=== PATIENT | male | born 1965 | race Hispanic/Latino ===

== ENCOUNTER 2018-01-25 00:42 | Emergency (ER) | payer MEDICARE ==
[~2018-01-25 00:42] MED LIST: APIX5TAB PO; ASPI-555 PO; CLOP75TA14 PO; DILT360C16 PO; EZET10 PO; FLUT1DIS3 PO; INSU10VI3 SQ; INSU3INS5 SQ; ISOS30TA6 PO; LEVE500T8 PO; LEVE750T10 PO; LISI-617 PO; METO-408 PO; RANO500T2 PO; RANO500T3 PO; ROSU40 PO; SITA1TBM4 PO; SOTA80TA PO; TRAM50TA4 PO
[2018-01-25] MEDS ORDERED: MAG HYDROX/AL HYDROX/SIMETH ES 30 ML SUSP UDCUP ONE (01:02)
[2018-01-25] MEDS ORDERED: LIDOCAINE HCL 2% VISCOUS 15 ML UDCUP ONE (01:02)
[2018-01-25] MEDS ORDERED: NITROGLYCERIN 1GM/1 INCH PACKET TD ONE (01:02)
[2018-01-25 01:11] LABS: BASOPHILS % (AUTO) 0.8 % (0.0-5.0); EOSINOPHILS % (AUTO) 4.3 % (0.0-8.0); LYMPHOCYTES % (AUTO) 30.7 % (21.0-51.0); MEAN CORPUSCULAR HEMOGLOBIN 28.6 pg (27.0-33.0); MEAN CORPUSCULAR HGB CONC 34.7 g/dL (32.0-36.0); MEAN CORPUSCULAR VOLUME 82.6 fL (79-99); MONOCYTES % (AUTO) 8.4 % (3.0-13.0); NEUTROPHILS % (AUTO) 55.8 % (40.0-77.0); PLATELET COUNT (AUTO) 274 K/uL (130-400); RED CELL DISTRIBUTION WIDTH 13.9 % (11.0-15.5); WHITE BLOOD COUNT (AUTO) 8.4 K/uL (4.8-10.8)
[2018-01-25 01:16] LABS: CREATININE 1.2 mg/dL (0.5-1.5); POTASSIUM 3.7 mmol/L (3.5-5.1)
[2018-01-25 01:21] LABS: INR 1.1 (0.85-1.15); PARTIAL THROMBOPLASTIN TIME 25.9 SEC (26.3-35.5); PROTHROMBIN TIME 11.5 SEC (9.6-11.6)
[2018-01-25 01:30] LABS: ALBUMIN 3.2 g/dL (3.5-5.0); BILIRUBIN,TOTAL 0.1 mg/dL (0.2-1.0); CREATINE KINASE MB 1.2 ng/mL (0.5-3.6); TOTAL PROTEIN, SERUM 7.2 g/dL (6.0-8.3)
[2018-01-25 01:32] LABS: B-TYPE NATRIURETIC PEPTIDE 45 pg/mL (0-100)
== END 2018-01-25 03:46 | disposition home or self-care (01) ==
LOC: EDH 00:42
DX: R07.89 Other chest pain (principal); I25.10 Atherosclerotic heart disease of native coronary artery without angina pectoris; Z86.73 Personal history of transient ischemic attack (TIA), and cerebral infarction without residual deficits; Z88.0 Allergy status to penicillin; Z88.8 Allergy status to other drugs, medicaments and biological substances
CPT/HCPCS: 36415; 71045; 80053; 82550; 82553; 83874; 83880; 84484; 85025; 85610; 85730; 93005; 94761

== ENCOUNTER 2024-05-11 11:25 | Inpatient (IN) | payer OTHER, MEDICARE ==
[~2024-05-11] VITALS: Ht 162.6 cm; Wt 88.5 kg
[~2024-05-11 11:25] MED LIST changes: +ASPI-1005 PO; -ASPI-555 PO; +CLOP-31 PO; -CLOP75TA14 PO; -DILT360C16 PO; +DULA1.5P SQ; -EZET10 PO; +FERR-82 PO; -FLUT1DIS3 PO; +INSU100V37 SQ; -INSU10VI3 SQ; -INSU3INS5 SQ; -ISOS30TA6 PO; +ISOS60TA77 PO; -LEVE500T8 PO; -LEVE750T10 PO; +LEVE750T4 PO; -LISI-617 PO; +LISI2.5T13 PO; +METF-446 PO; -METO-408 PO; -RANO500T3 PO; -ROSU40 PO; -SITA1TBM4 PO; -SOTA80TA PO; -TRAM50TA4 PO
[2024-05-11 13:30] LABS: BASOPHILS # (AUTO) 0.05 K/uL (0.00-0.20); BASOPHILS % (AUTO) 0.6 % (0.0-5.0); EOSINOPHILS % (AUTO) 3.4 % (0.0-8.0); HEMATOCRIT 34.3 % (42-54); IMMATURE GRANULOCYTE ABSOLUTE 0.04 K/uL (0-1); LYMPHOCYTES # (AUTO) 1.7 K/uL (1.0-4.8); LYMPHOCYTES % (AUTO) 19.5 % (21.0-51.0); MEAN CORPUSCULAR HEMOGLOBIN 27.9 pg (27.0-33.0); MEAN CORPUSCULAR HGB CONC 33.2 g/dL (32.0-36.0); MEAN CORPUSCULAR VOLUME 84.1 fL (79-99); MONOCYTES # (AUTO) 0.6 K/uL (0.1-1.0); MONOCYTES % (AUTO) 6.6 % (3.0-13.0); NEUTROPHILS # (AUTO) 6.2 K/uL (1.8-7.7); NEUTROPHILS % (AUTO) 69.4 % (40.0-77.0); PLATELET COUNT (AUTO) 316 K/uL (130-400); RED BLOOD CELL COUNT(AUTO) 4.08 MIL/uL (4.50-6.20); RED CELL DISTRIBUTION WIDTH 14.5 % (11.0-15.5); WHITE BLOOD COUNT (AUTO) 8.8 K/uL (4.8-10.8)
[2024-05-11 13:44] LABS: ALBUMIN 2.9 g/dL (3.5-5.0); BILIRUBIN,TOTAL 0.2 mg/dL (0.2-1.0); CREATININE 1.3 mg/dL (0.5-1.3); POTASSIUM 4.1 mmol/L (3.5-5.1); TOTAL PROTEIN, SERUM 6.9 g/dL (6.0-8.3)
[2024-05-11] MEDS: LACTATED RINGERS 1000ML 1,000 ML IV ONE (13:52)
[2024-05-11] MEDS: PANTOPrazole 40 MG/VIAL IVP ONE (13:52)
[2024-05-11] MEDS: ondanSETRON 4MG INJ IVP ONE (13:52)
[2024-05-11] MEDS: acetaMINOPHEN 325 MG TAB PO ONE (13:52)
[2024-05-11 14:59] LABS: ADD UA MICROSCOPIC YES; APPEARANCE,URINE CLEAR (CLEAR); BILIRUBIN,URINE NEGATIVE (NEGATIVE); COLOR,URINE LIGHT-YELLOW (YELLOW); GLUCOSE, URINE (UA) >=1000 mg/dL (NEGATIVE); KETONES,URINE NEGATIVE (NEGATIVE); LEUKOCYTE ESTERASE ,URINE NEGATIVE Leu/uL (NEGATIVE); NITRATE,URINE NEGATIVE (NEGATIVE); OCCULT BLOOD,URINE SMALL (NEGATIVE); PROTEIN,URINE 300 mg/dL (NEGATIVE); UROBILINOGEN,URINE 0.2 mg/dL (0.2-1.0)
[2024-05-11 15:16] LABS: MUCUS,URINE RARE LPF (None Seen); WBC,URINE 0-1 /HPF (0-1)
[2024-05-11] MEDS ORDERED: hydrALAZine 20MG/ML VIAL IV PRN (16:30)
[2024-05-11] MEDS ORDERED: acetaMINOPHEN 325 MG TAB PO PRN (16:30)
[2024-05-11] MEDS ORDERED: ondanSETRON 4MG INJ IVP PRN (16:30)
[2024-05-11] MEDS: hydroMORPHone 0.5 MG SYG (0.5MG/0.5ML) IJ ONE (17:00)
[2024-05-11] MEDS: 0.9%NACL 1000ML 1,000 ML IV SCH (17:09)
[2024-05-11] MEDS ORDERED: levoFLOXacin 500 MG/D5W 100 ML 100 ML IV SCH (18:00)
[2024-05-11 18:41] VITALS: BP 189/92; PULSE 67; RESP 20; TEMP 98.4
[2024-05-11] MEDS ORDERED: ATOR40TA69 PO (19:34)
[2024-05-11] MEDS ORDERED: OMEP40CA21 PO (19:34)
[2024-05-11] MEDS ORDERED: METO25TA6 PO (19:34)
[2024-05-11] MEDS ORDERED: METF-446 PO (19:34)
[2024-05-11] MEDS ORDERED: TICA90TA PO (19:34)
[2024-05-11] MEDS ORDERED: HYDR50TA37 PO (19:34)
[2024-05-11 20:00] VITALS: O2SAT 97
[2024-05-11 20:29] VITALS: BP 179/95; PULSE 68; RESP 18; TEMP 97.8
[2024-05-11] MEDS: FAMOTIDINE 20MG VIAL IV SCH (20:55)
[2024-05-11] MEDS: levoFLOXacin 500 MG/D5W 100 ML 100 ML IV SCH (20:56)
[2024-05-11] MEDS: hydroMORPHone 0.5 MG SYG (0.5MG/0.5ML) IVP PRN (23:15)
[2024-05-11 23:45] VITALS: BP 160/63; PULSE 71; RESP 22; TEMP 98.2
[2024-05-12 04:14] VITALS: BP 166/94; PULSE 68; RESP 17; TEMP 98.3
[2024-05-12 04:37] LABS: BASOPHILS # (AUTO) 0.07 K/uL (0.00-0.20); BASOPHILS % (AUTO) 0.6 % (0.0-5.0); EOSINOPHILS # (AUTO) 0.29 K/uL (0.00-0.70); EOSINOPHILS % (AUTO) 2.3 % (0.0-8.0); HEMATOCRIT 34.7 % (42-54); IMMATURE GRANULOCYTE ABSOLUTE 0.05 K/uL (0-1); LYMPHOCYTES # (AUTO) 1.3 K/uL (1.0-4.8); LYMPHOCYTES % (AUTO) 10.8 % (21.0-51.0); MEAN CORPUSCULAR HEMOGLOBIN 27.5 pg (27.0-33.0); MEAN CORPUSCULAR HGB CONC 32.9 g/dL (32.0-36.0); MEAN CORPUSCULAR VOLUME 83.8 fL (79-99); MONOCYTES # (AUTO) 0.6 K/uL (0.1-1.0); MONOCYTES % (AUTO) 4.6 % (3.0-13.0); NEUTROPHILS % (AUTO) 81.3 % (40.0-77.0); PLATELET COUNT (AUTO) 314 K/uL (130-400); RED BLOOD CELL COUNT(AUTO) 4.14 MIL/uL (4.50-6.20); RED CELL DISTRIBUTION WIDTH 14.3 % (11.0-15.5); WHITE BLOOD COUNT (AUTO) 12.4 K/uL (4.8-10.8)
[2024-05-12 05:07] LABS: ALBUMIN 2.6 g/dL (3.5-5.0); BILIRUBIN,TOTAL 0.3 mg/dL (0.2-1.0); CREATININE 1.2 mg/dL (0.5-1.3); MAGNESIUM 1.5 mg/dL (1.80-2.40); POTASSIUM 3.6 mmol/L (3.5-5.1); TOTAL PROTEIN, SERUM 6.7 g/dL (6.0-8.3)
[2024-05-12 07:35] VITALS: BP 177/89; PULSE 89; RESP 20; TEMP 98.9
[2024-05-12 08:00] VITALS: O2SAT 96
[2024-05-12] MEDS: MAGNESIUM 2GM PREMIX 50ML 50 ML IV PRN (08:53)
[2024-05-12 11:18] VITALS: BP 162/83; PULSE 94; RESP 20; TEMP 98.4
[2024-05-12] MEDS: PoTASSium chloRIDE 20MEQ/100ML 100 ML IV PRN (11:25)
[2024-05-12] MEDS: hydrALAZine 25MG TABLET PO SCH (14:00)
[2024-05-12] MEDS: FERROUS SULFATE 325 MG TABLET.DR PO SCH (14:00)
[2024-05-12 15:45] VITALS: BP 166/83; PULSE 87; RESP 20; TEMP 98.2
[2024-05-12] MEDS: BisaCODYL 10 MG SUPP.RECT RC ONE (16:55)
[2024-05-12 20:00] VITALS: BP 188/77; PULSE 85; RESP 18; TEMP 98.3; O2SAT 95
[2024-05-12] MEDS: leveTIRACEtam 500 MG TABLET PO SCH (20:46)
[2024-05-12] MEDS: TICAGrelor 90 MG TABLET PO SCH (20:47)
[2024-05-12] MEDS: metoPROLOL tartRATE 25 MG TAB PO SCH (20:47)
[2024-05-12] MEDS: RANOLAZINE 500 MG TAB.SR.12H PO SCH (20:47)
[2024-05-12] MEDS: atorVAStatin 40 MG TABLET PO SCH (20:48)
[2024-05-12] MEDS: ISOSORBIDE MONO 60MG SR TAB PO SCH (20:48)
[2024-05-13] VITALS (26 sets, daily range): BP systolic 109–150; BP diastolic 46–79; PULSE 55–82; RESP 5–20; TEMP 98.1–99.2; O2SAT 96–97
[2024-05-13 05:15] LABS: MEAN CORPUSCULAR HGB CONC 33.1 g/dL (32.0-36.0); MEAN CORPUSCULAR VOLUME 84.4 fL (79-99); RED BLOOD CELL COUNT(AUTO) 3.79 MIL/uL (4.50-6.20); RED CELL DISTRIBUTION WIDTH 14.7 % (11.0-15.5); WHITE BLOOD COUNT (AUTO) 10.2 K/uL (4.8-10.8)
[2024-05-13 05:30] LABS: CREATININE 1.4 mg/dL (0.5-1.3); POTASSIUM 3.5 mmol/L (3.5-5.1)
[2024-05-13] MEDS ORDERED: PoTASSium chl 10% ELIXIR 20MEQ 20 MEQ/15 ML UDCUP PO PRN (08:00)
[2024-05-13] MEDS ORDERED: PoTASSium chloRIDE 20MEQ/100ML 100 ML IV PRN (08:00)
[2024-05-13] MEDS: ASPIRIN 81MG CHEW TAB PO SCH (09:00)
[2024-05-13] MEDS: LEVETIRACETAM 1,500MG @ 400 MLS/HR(100ml) IV SCH (09:29)
[2024-05-13 09:40] LABS: AMPHET/METH SCREEN,URINE NEGATIVE (NEGATIVE); BARBITURATE SCREEN, URINE NEGATIVE (NEGATIVE); BENZODIAZEPINES SCREEN,URINE NEGATIVE (NEGATIVE); CANNABINOID SCREEN,URINE NEGATIVE (NEGATIVE); COCAINE SCREEN,URINE NEGATIVE (NEGATIVE); OPIATE SCREEN,URINE POSITIVE (NEGATIVE); PHENCYCLIDINE SCREEN,URINE NEGATIVE (NEGATIVE)
[2024-05-13 10:26] LABS: ABG BASE EXCESS 2.2 mmol/L (-2.0-3.0); ABG HCO3 27.2 mmol/L (21.0-28.0); ABG OXYGEN SATURATION 96.3 % (94.0-98.0); ABG PCO2 44 mmHg (35-48); ABG PH 7.411 (7.350-7.450); DEVICE COMMENT LBSYLVIA; VENT MODE, BG RA (ROOM AIR)
[2024-05-14 03:32] LABS: HEMATOCRIT 30.7 % (42-54); MEAN CORPUSCULAR HEMOGLOBIN 28.5 pg (27.0-33.0); MEAN CORPUSCULAR HGB CONC 33.9 g/dL (32.0-36.0); MEAN CORPUSCULAR VOLUME 84.1 fL (79-99); RED BLOOD CELL COUNT(AUTO) 3.65 MIL/uL (4.50-6.20); RED CELL DISTRIBUTION WIDTH 14.6 % (11.0-15.5); WHITE BLOOD COUNT (AUTO) 7.6 K/uL (4.8-10.8)
[2024-05-14 04:15] VITALS: BP_SYST 119; BP_SYST 199; BP_DIAS 53; PULSE 66; RESP 18; TEMP 98
[2024-05-14 04:37] LABS: ALBUMIN 2.3 g/dL (3.5-5.0); BILIRUBIN,TOTAL 0.4 mg/dL (0.2-1.0); CREATININE 1.4 mg/dL (0.5-1.3); MAGNESIUM 1.8 mg/dL (1.80-2.40); POTASSIUM 3.5 mmol/L (3.5-5.1); TOTAL PROTEIN, SERUM 6.2 g/dL (6.0-8.3)
[2024-05-14] MEDS: PoTASSium chloRIDE 20MEQ ER 20 MEQ ERTAB PO PRN (05:15)
[2024-05-14 07:10] VITALS: O2SAT 97
[2024-05-14 07:30] VITALS: BP 124/65; PULSE 62; RESP 18; TEMP 98
[2024-05-14] MEDS ORDERED: acetaMINOPHEN WITH coDEINE 1 TAB TAB PO PRN ×2 (10:00→10:30)
[2024-05-14 12:14] VITALS: BP 131/73; PULSE 68; RESP 20; TEMP 98.1
[2024-05-14 16:43] VITALS: BP 132/65; PULSE 76; RESP 17; TEMP 98.4
[2024-05-14 20:00] VITALS: BP 135/68; PULSE 67; RESP 20; TEMP 98.1
[2024-05-15] VITALS: BP 153/86; PULSE 67; RESP 17; TEMP 98.7
[2024-05-15 04:00] VITALS: BP 121/70; PULSE 71; RESP 18; TEMP 98.2
[2024-05-15 04:50] LABS: HEMATOCRIT 31.9 % (42-54); MEAN CORPUSCULAR HEMOGLOBIN 28.7 pg (27.0-33.0); MEAN CORPUSCULAR HGB CONC 33.9 g/dL (32.0-36.0); MEAN CORPUSCULAR VOLUME 84.8 fL (79-99); RED BLOOD CELL COUNT(AUTO) 3.76 MIL/uL (4.50-6.20); RED CELL DISTRIBUTION WIDTH 14.7 % (11.0-15.5); WHITE BLOOD COUNT (AUTO) 8.2 K/uL (4.8-10.8)
[2024-05-15 05:24] LABS: CREATININE 1.4 mg/dL (0.5-1.3); POTASSIUM 3.7 mmol/L (3.5-5.1)
[2024-05-15 07:00] VITALS: O2SAT 99
[2024-05-15 08:00] VITALS: BP 133/74; PULSE 64; RESP 20; TEMP 98.3
[2024-05-15] MEDS ORDERED: COMPOUND IV MISC 1 EACH IVSOLN MISC PRN (09:30)
== END 2024-05-15 11:30 | disposition home or self-care (01) | DRG 637 ==
LOC: EDH 11:25 → EDHIP 16:14 → 4DH 18:25 → 2CV 05-13 09:21 → 2DH 05-13 18:07 → 4AH 05-14 14:20
PROVIDERS: ADMIT Hospitalist; ATTEND Hospitalist
DX: E11.65 Type 2 diabetes mellitus with hyperglycemia (principal); E43 Unspecified severe protein-calorie malnutrition; D68.69 Other thrombophilia; I48.20 Chronic atrial fibrillation, unspecified; I69.354 Hemiplegia and hemiparesis following cerebral infarction affecting left non-dominant side; I50.30 Unspecified diastolic (congestive) heart failure; E78.5 Hyperlipidemia, unspecified; G51.0 Bell's palsy; I25.10 Atherosclerotic heart disease of native coronary artery without angina pectoris; I11.0 Hypertensive heart disease with heart failure; Z95.1 Presence of aortocoronary bypass graft; Z79.82 Long term (current) use of aspirin; Z95.5 Presence of coronary angioplasty implant and graft; Z79.899 Other long term (current) drug therapy
CPT/HCPCS: 36415; 36600; 70450; 71045; 74018; 74176; 80048; 80053; 80305; 81001; 82550; 82803; 82948; 83690; 83735; 84484; 85025; 85027; 93005; 96361; 96374; 96375; G0378; J1171; J1953; J1956; J2405; J2470; J3475; J3480; J3490; J7030; J7120

== ENCOUNTER 2024-06-25 15:03 | Emergency (ER) | payer OTHER, MEDICARE ==
[~2024-06-25] VITALS: Ht 162.6 cm; Wt 86.2 kg
[~2024-06-25 15:03] MED LIST changes: -APIX5TAB PO; +ATOR40TA69 PO; -CLOP-31 PO; -DULA1.5P SQ; +HYDR50TA37 PO; -LISI2.5T13 PO; +METO25TA6 PO; +OMEP40CA21 PO; +TICA90TA PO
[2024-06-25] MEDS: MAG/ALUM/SIMETH 30 ML UDCUP PO ONE (15:54)
[2024-06-25] MEDS: LIDOCAINE HCL 2% VISCOUS 15 ML UDCUP PO ONE (15:54)
[2024-06-25] MEDS: PANTOPrazole 40 MG/VIAL IVP ONE (15:54)
[2024-06-25] MEDS: LACTATED RINGERS 1000ML 1,000 ML IV ONE (15:54)
[2024-06-25] MEDS: ondanSETRON 4MG INJ IVP ONE (15:54)
--- NOTE | 2024-06-25 16:11 | ERN ---
General Chief Complaint: Abdominal Pain Stated Complaint: ABD PAIN Time Seen by MD: 15:07 Source: patient History of Present Illness Initial Comments PATIENT IS A 59-YEAR-OLD MALE COMING IN TO BE EVALUATED FOR ABDOMINAL DISCOMFORT. PATIENT STATES THAT HE HAS BEEN HAVING THIS PAIN FOR A COUPLE OF MONTHS. HE STATES THAT HE HAS BEEN ON OZEMPIC IN HIS PRIMARY CARE PHYSICIAN EVALUATED HIM LOWER THE DOSAGE FELT BETTER FOR A LITTLE BIT BUT HIS SYMPTOMS PROGRESSIVELY RETURNED. Allergies: Coded Allergies: Penicillins (Unverified Allergy, Unknown, 01/23/18) gabapentin (Unverified Allergy, Unknown, 01/23/18) Home Meds Active Scripts Isosorbide Mononitrate (Isosorbide Mononitrate ER) 60 Mg Tab.er.24h, 60 MG PO BID, #60 TAB 1 Refill Prov:ALMITA JOY 10/19/23 Ranolazine (RANEXA) 500 Mg Tab.er.12h, 1000 MG PO BID, #60 TAB 3 Refills Prov:ALMITA JOY 10/19/23 Reported Medications Atorvastatin Calcium (LIPITOR) 40 Mg Tablet, 1 TAB PO HS for 30 Days, #30 TAB 0 Refills 05/11/24 Metformin HCl (Metformin HCl) 1,000 Mg Tablet, 1 TAB PO DAILY for 30 Days, #60 TAB 0 Refills 05/11/24 Hydralazine HCl (Hydralazine HCl) 50 Mg Tablet, 1 TAB PO TID for 30 Days, #90 TAB 0 Refills 05/11/24 Metoprolol Tartrate (Metoprolol Tartrate) 25 Mg Tablet, 1 TAB PO BID for 30 Days, #60 TAB 0 Refills 05/11/24 Ticagrelor (Brilinta) 90 Mg Tablet, 1 TAB PO BID for 30 Days, #60 TAB 0 Refills 05/11/24 Omeprazole (Omeprazole) 40 Mg Capsule.dr, 1 CAP PO DAILY for 30 Days, #30 CAP 0 Refills 05/11/24 Ferrous Sulfate (Iron) 325 Mg (65 Mg Iron) Tablet, 325 MG PO TID, TAB 10/17/23 Levetiracetam (Keppra) 750 Mg Tablet, 1500 MG PO BID, TAB 10/17/23 Insulin Degludec (Tresiba) 100 Unit/Ml Vial, 60 UNIT SQ DAILY, VIAL 10/17/23 Aspirin (ASPIRIN 81MG CHEW TAB) 81 Mg Tab.chew, 81 MG PO DAILY, TAB.CHEW 09/13/22 Past Medical History Past Medical History: CAD, CHF, CVA, Diabetes-Type II, Hypertension, Seizure Past Surgical History: CABG, Other Surgical History Other: OPEN HEART (2017) [address] ROS Dictation CONSTITUTIONAL: NO CHILLS, NO FEVER, NO WEAKNESS, NO DIAPHORESIS, NO MALAISE. HEAD/FACE: NO SIGNS OF TRAUMA. EENT: NO EYE PAIN, NO BLURRED VISION, NO TEARING, NO DOUBLE VISION, NO EAR PAIN, NO EAR DISCHARGE, NO NOSE PAIN, NO NASAL CONGESTION, NO THROAT PAIN, NO THROAT SWELLING, NO MOUTH PAIN. RESPIRATORY: NO COUGH, NO ORTHOPNEA, NO SOB, NO STRIDOR, NO WHEEZING. CARDIOVASCULAR: NO CHEST PAIN, NO EDEMA, NO PALPITATIONS, NO SYNCOPE. GASTROINTESTINAL/ABDOMINAL: ABDOMINAL PAIN, NO CONSTIPATION, NO DIARRHEA, NAUSEA, NO VOMITING. GENITOURINARY: NO ABNORMAL DISCHARGE, NO DYSURIA, NO FREQUENT URINATION, NO HEMATURIA. NO COMPLAINTS OF PAIN IN THE GENITALS. MUSCULOSKELETAL: NO BACK PAIN, NO GOUT, NO JOINT PAIN, NO JOINT SWELLING, NO MUSCLE PAIN, NO MUSCLE STIFFNESS, NO NECK PAIN. INTEGUMENTARY: NO CHANGE IN COLOR, NO CHANGE IN HAIR/NAILS, NO DRYNESS, NO LESION, NO LUMPS, NO RASH. NEUROLOGICAL/PSYCH: NO ANXIETY, NOT DEPRESSED, NO EMOTIONAL PROBLEM, NO HEADACHE, NO NUMBNESS, NO PRE-EXISTING DEFICIT, NO HISTORY OF SEIZURES, NO TREMORS, NO WEAKNESS. HEMATOLOGIC/LYMPHATIC: NOT ANEMIC, NO HISTORY OF BLOOD CLOTS, NO APPARENT BLEEDING, NO BRUISING, GLANDS NOT SWOLLEN. ALL SYSTEMS NEGATIVE, EXCEPT NOTED. Physical Exam Physical Exam Dictation VITAL SIGNS: REVIEWED. GENERAL APPEARANCE: ALERT, ORIENTED X3, NO ACUTE DISTRESS, OBESE. HEAD AND FACE: NON-TRAUMATIC. EYES: PERRL, PINK CONJUNCTIVAS, EYELID NO TRAUMA, ANTERIOR CHAMBER CLEAR. EARS: PINNAS INTACT AND NO SIGNS OF TRAUMA OR ERYTHEMA. EAR CANALS CLEAR AND NO DISCHARGE. TMS NO ERYTHEMA. NOSE: NO DISCHARGE, NO BLEEDING. OROPHARYNX: MOUTH NORMAL, TEETH NO CARIES, TONGUE PINK. PHARYNX CLEAR, NO ERYTHEMA. TONSILS NO EXUDATES, NO ABSCESSES NOTED. MUCOUS MEMBRANE MOIST. NECK: SUPPLE, NON-TENDER, NO THYROMEGALY, NO MASSES, NO JVD, NO BRUITS. BREAST: DEFERRED. CHEST: NO TENDERNESS, NO CREPITUS, NO PARADOXICAL MOVEMENT, NO RETRACTIONS. LUNGS: CLEAR, WELL-VENTILATED, SYMMETRIC, NO RALES, NO WHEEZING, NO RHONCHI, NO STRIDOR, GOOD BREATH SOUNDS BILATERALLY. HEART: REGULAR RATE, REGULAR RHYTHM, NO MURMUR, NO GALLOPS. VASCULAR: NO PERIPHERAL EDEMA. ABDOMEN: SOFT, POSITIVE BOWEL SOUNDS, NONDISTENDED, NO GUARDING, GENERALIZED ABDOMINAL TENDERNESS, NO REBOUND, NO MASSES NO HEPATOMEGALY, NO SPLENOMEGALY, NO BLEVINS'S SIGN, NO HERNIAS. RECTAL: DEFERRED. GENITAL: DEFERRED. NEUROLOGICAL: NORMAL SPEECH, GROSS MOTOR FUNCTION INTACT, GROSS SENSORY FUNCTION INTACT. MUSCULOSKELETAL: NECK NONTENDER, FULL RANGE OF MOTION, BACK NONTENDER, FULL RANGE OF MOTION. EXTREMITIES: NONTENDER, FULL RANGE OF MOTION. SKIN: COLOR PINK, DRY, NO TURGOR, NO RASH, NO LACERATIONS, NO ABRASIONS, NO CONTUSIONS. LYMPHATICS: DEFERRED. Results Laboratory and Microbiology Lab and Micro Result Laboratory Tests Test 06/25/24 16:04 06/25/24 16:25 White Blood Count 10.8 K/uL (4.8-10.8) Red Blood Count 4.26 MIL/uL (4.50-6.20) L Hemoglobin 12.2 g/dL (14.0-18.0) L Hematocrit 36.9 % (42-54) L Mean Corpuscular Volume 86.6 fL (79-99) Mean Corpuscular Hemoglobin 28.6 pg (27.0-33.0) Mean Corpuscular Hemoglobin Concent 33.1 g/dL (32.0-36.0) Red Cell Distribution Width 14.6 % (11.0-15.5) Platelet Count 286 K/uL (130-400) Mean Platelet Volume 10.5 fL (7.5-10.5) Immature Granulocyte % (Auto) 0.4 % (0-1) Neutrophils (%) (Auto) 68.8 % (40.0-77.0) Lymphocytes (%) (Auto) 18.6 % (21.0-51.0) L Monocytes (%) (Auto) 6.1 % (3.0-13.0) Eosinophils (%) (Auto) 5.5 % (0.0-8.0) Basophils (%) (Auto) 0.6 % (0.0-5.0) Neutrophils # (Auto) 7.5 K/uL (1.8-7.7) Lymphocytes # (Auto) 2.0 K/uL (1.0-4.8) Monocytes # (Auto) 0.7 K/uL (0.1-1.0) Eosinophils # (Auto) 0.59 K/uL (0.00-0.70) Basophils # (Auto) 0.06 K/uL (0.00-0.20) Absolute Immature Granulocyte (auto 0.04 K/uL (0-1) Nucleated Red Blood Cells 0.0 % (0.0-0.19) Sodium Level 142 mmol/L (136-145) Potassium Level 3.7 mmol/L (3.5-5.1) Chloride Level 104 mmol/L (101-111) Carbon Dioxide Level 32 mmol/L (21-32) Blood Urea Nitrogen 14 mg/dL (7-18) Creatinine 1.3 mg/dL (0.5-1.3) Glomerular Filtration Rate Calc 64 mL/min (>90) Random Glucose 166 mg/dL (70-105) H Total Calcium 8.5 mg/dL (8.5-10.1) Total Bilirubin 0.2 mg/dL (0.2-1.0) Aspartate Amino Transf (AST/SGOT) 23 U/L (10-37) Alanine Aminotransferase (ALT/SGPT) 27 U/L (12-78) Alkaline Phosphatase 129 U/L (50-136) Total Creatine Kinase 159 U/L (21-232) Troponin I High Sensitivity 10 ng/L (4-75) Total Protein 6.9 g/dL (6.0-8.3) Albumin 3.1 g/dL (3.5-5.0) L Lipase 28 U/L (16-77) Urine Color LIGHT-YELLOW (YELLOW) Urine Appearance CLEAR (CLEAR) Urine pH 6.0 (5.0-8.0) Urine Specific [place] 1.012 (1.001-1.031) Urine Protein 200 mg/dL (NEGATIVE) H Urine Glucose (UA) >=1000 mg/dL (NEGATIVE) H Urine Ketones NEGATIVE mg/dL (NEGATIVE) Urine Occult Blood SMALL (NEGATIVE) H Urine Nitrate NEGATIVE (NEGATIVE) Urine Bilirubin NEGATIVE mg/dL (NEGATIVE) Urine Urobilinogen 0.2 mg/dL (0.2-1.0) Urine Leukocyte Esterase NEGATIVE Aimee/uL Urine RBC 2-5 /HPF (0-1) H Urine WBC 2-5 /HPF (0-1) H Urine Squamous Epithelial Cells RARE /HPF (0-2) Urine Bacteria RARE /HPF (None Seen) Labs Reviewed?: Yes EKG/XRAY/US/CT/MRI EKG Comment 06/25/2024 TIME 4:12 P.M. VENTRICULAR RATE [address] SIN[address] R[address]M [place] [address] WAVE ELEVATION OR DEPRESSION MDM MDM: DIFFERENTIAL DIAGNOSIS: ABDOMINAL PAIN, ON OZEMPIC, PATIENT IS A 59-YEAR-OLD GENTLEMAN COMING IN TO BE EVALUATED FOR ABDOMINAL PAIN. LABORATORY WORKUP NEGATIVE FOR ACUTE FINDINGS. PATIENT STATES HE WAS ON OZEMPIC AND HAS BEEN HAVING THIS DISCOMFORT. PATIENT RECEIVED GI COCKTAIL STATES THE SYMPTOMS STILL PRESENT. CT OF THE ABDOMEN WAS ORDERED BUT PATIENT REFUSED. PATIENT WILL BE DISCHARGED IN STABLE CONDITION WITH A DIAGNOSIS OF CHRONIC ABDOMINAL DISCOMFORT WELL MEDICATION SIDE EFFECT. ED Course Orders Procedure Category Date Status Time Cbc With Differential LAB 06/25/24 Complete 15:32 Comprehensive LAB 06/25/24 Complete Metabolic Panel 15:32 Troponin I High LAB 06/25/24 Complete Sensitivity 15:32 Urinalysis Profile LAB 06/25/24 Complete 15:32 12 Lead Ekg Tracing- EKG 06/25/24 Logged Technical 15:32 Lactated Ringers PHA 06/25/24 Complete 1000ml (Lactated 16:00 Ondansetron 4mg Inj PHA 06/25/24 Complete (Zofran 4mg Inj) 16:00 Lidocaine Hcl 2% PHA 06/25/24 Complete Viscous (Lidocaine Hcl 16:00 Mag/Alum/Simeth 30ml PHA 06/25/24 Complete (Maalox Plus 30ml) 16:00 Pantoprazole 40mg Inj PHA 06/25/24 Complete (Protonix 40mg Inj 16:00 Creatine Kinase, Total LAB 06/25/24 Complete 15:32 Lipase LAB 06/25/24 Complete 15:32 Ct Abdomen/Pelvis W/O CT 06/25/24 Logged Contrast 17:20 Current Medications Medications (Trade) Dose Ordered Sig/William Route PRN Reason Start Time Stop Time Status Last Admin Dose Admin Al Hydroxide/Mg Hydroxide (MAALox PLUS 30ML) 30 ml ONCE ONCE PO 06/25/24 16:00 06/25/24 16:01 DC 06/25/24 15:54 Lactated Ringer's 1,000 ml @ 0 mls/hr ONCE ONCE IV 06/25/24 16:00 06/25/24 16:01 DC 06/25/24 15:54 Lidocaine HCl (Lidocaine HCl 2% Viscous) 10 ml ONCE ONCE PO 06/25/24 16:00 06/25/24 16:01 DC 06/25/24 15:54 Ondansetron HCl (zoFRAN 4MG INJ) 4 mg ONCE ONCE IVP 06/25/24 16:00 06/25/24 16:01 DC 06/25/24 15:54 Pantoprazole Sodium (PROTonix 40MG INJ) 40 mg ONCE ONCE IVP 06/25/24 16:00 06/25/24 16:01 DC 06/25/24 15:54 Vital Signs Date Time Temp Pulse Resp B/P (MAP) Pulse Ox O2 Delivery O2 Flow Rate FiO2 06/25/24 17:31 97.9 77 20 164/76 100 Room Air* 0 21 06/25/24 16:07 97.9 75 20 178/74 100 Room Air* 0 21 06/25/24 15:07 98.4 77 18 186/91 98 DX & DISP Disposition: Discharge Departure Impression: Primary Impression: Chronic abdominal pain Additional Impressions: Gastritis, Medication side effect Condition: Stable Scripts Pantoprazole Sodium (Protonix) 40 Mg Ectab 1 TAB PO DAILY for 30 Days, #30 TAB 0 Refills Prov: ANISH BEY MD 06/25/24 Additional Instructions: FOLLOW-UP WITH PRIMARY CARE PROVIDER IN 1 TO 2 DAYS. TAKE MEDICATIONS DIRECTED HERE IN THE EMERGENCY ROOM. OKAY TO CONTINUE HOME MEDICATIONS UNLESS OTHERWISE DISCUSSED DURING YOUR VISIT IN THE EMERGENCY ROOM TODAY. RETURN TO YOUR NEAREST EMERGENCY ROOM IF SYMPTOMS WORSEN OR IF THERE IS NO IMPROVEMENT. CALL 911 IF YOU NEED IMMEDIATE ASSISTANCE. TAKE TYLENOL [id number] NEEDED AND IF NO CONTRAINDICATIONS ARE PRESENT. INCREASE ORAL HYDRATION. A WOUND CULTURE OR URINE CULTURE WAS ORDERED HERE IN THE EMERGENCY ROOM DEPARTMENT PLEASE FOLLOW-UP WITH PRIMARY CARE PROVIDER AND ADVISE THEM TO GET REPEAT PORTS FROM OUR FACILITY. IF YOU HAD ANY MELA WRAP/SPLINTS THAT WERE APPLIED HERE, PLEASE DO NOT REMOVE THEM UNTIL YOU SEE YOUR PRIMARY CARE OR SPECIALTY. REFERRALS: Referrals: NANCY REGALADO MD (PCP) Time of Disposition: 17:42 ANISH BEY MD Jun 25, 2024 16:10
[2024-06-25 16:42] LABS: BASOPHILS # (AUTO) 0.06 K/uL (0.00-0.20); BASOPHILS % (AUTO) 0.6 % (0.0-5.0); EOSINOPHILS # (AUTO) 0.59 K/uL (0.00-0.70); EOSINOPHILS % (AUTO) 5.5 % (0.0-8.0); HEMATOCRIT 36.9 % (42-54); IMMATURE GRANULOCYTE ABSOLUTE 0.04 K/uL (0-1); LYMPHOCYTES % (AUTO) 18.6 % (21.0-51.0); MEAN CORPUSCULAR HEMOGLOBIN 28.6 pg (27.0-33.0); MEAN CORPUSCULAR HGB CONC 33.1 g/dL (32.0-36.0); MEAN CORPUSCULAR VOLUME 86.6 fL (79-99); MONOCYTES # (AUTO) 0.7 K/uL (0.1-1.0); MONOCYTES % (AUTO) 6.1 % (3.0-13.0); NEUTROPHILS # (AUTO) 7.5 K/uL (1.8-7.7); NEUTROPHILS % (AUTO) 68.8 % (40.0-77.0); PLATELET COUNT (AUTO) 286 K/uL (130-400); RED BLOOD CELL COUNT(AUTO) 4.26 MIL/uL (4.50-6.20); RED CELL DISTRIBUTION WIDTH 14.6 % (11.0-15.5); WHITE BLOOD COUNT (AUTO) 10.8 K/uL (4.8-10.8)
[2024-06-25 16:46] LABS: ADD UA MICROSCOPIC YES; APPEARANCE,URINE CLEAR (CLEAR); BILIRUBIN,URINE NEGATIVE (NEGATIVE); COLOR,URINE LIGHT-YELLOW (YELLOW); GLUCOSE, URINE (UA) >=1000 mg/dL (NEGATIVE); KETONES,URINE NEGATIVE (NEGATIVE); LEUKOCYTE ESTERASE ,URINE NEGATIVE Leu/uL (NEGATIVE); NITRATE,URINE NEGATIVE (NEGATIVE); OCCULT BLOOD,URINE SMALL (NEGATIVE); PROTEIN,URINE 200 mg/dL (NEGATIVE); UROBILINOGEN,URINE 0.2 mg/dL (0.2-1.0)
[2024-06-25 16:56] LABS: BACTERIA,URINE RARE /HPF (None Seen); MUCUS,URINE RARE LPF (None Seen); SQUAMOUS EPITHELIAL CELL,UR RARE /HPF (0-2)
[2024-06-25 17:17] LABS: ALBUMIN 3.1 g/dL (3.5-5.0); BILIRUBIN,TOTAL 0.2 mg/dL (0.2-1.0); CREATININE 1.3 mg/dL (0.5-1.3); POTASSIUM 3.7 mmol/L (3.5-5.1); TOTAL PROTEIN, SERUM 6.9 g/dL (6.0-8.3)
[2024-06-25 17:31] VITALS: BP 164/76; PULSE 77; RESP 20; TEMP 97.8; O2SAT 100
--- NOTE | 2024-06-25 17:32 | NUR ---
PATIENT REFUSED CT SCAN ED MD MADE AWARE
--- NOTE | 2024-06-25 17:33 | NUR ---
PATIENT REFUSED CT EXAM
[2024-06-25] MEDS ORDERED: PANT40TA55 PO (17:42)
--- NOTE | 2024-06-27 17:09 | EKG ---
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
== END 2024-06-25 17:50 | disposition home or self-care (01) ==
LOC: EDH 15:03
DX: G89.29 Other chronic pain (principal); R10.84 Generalized abdominal pain; T50.995A Adverse effect of other drugs, medicaments and biological substances, initial encounter; K29.70 Gastritis, unspecified, without bleeding; E11.9 Type 2 diabetes mellitus without complications; I11.0 Hypertensive heart disease with heart failure; I50.9 Heart failure, unspecified; I25.10 Atherosclerotic heart disease of native coronary artery without angina pectoris; Z79.02 Long term (current) use of antithrombotics/antiplatelets; Z79.4 Long term (current) use of insulin; Z79.82 Long term (current) use of aspirin; Z79.84 Long term (current) use of oral hypoglycemic drugs; Z79.85 Long-term (current) use of injectable non-insulin antidiabetic drugs; Z79.899 Other long term (current) drug therapy; Z86.73 Personal history of transient ischemic attack (TIA), and cerebral infarction without residual deficits; Z88.0 Allergy status to penicillin; Z88.8 Allergy status to other drugs, medicaments and biological substances; Z95.1 Presence of aortocoronary bypass graft; Z95.5 Presence of coronary angioplasty implant and graft
CPT/HCPCS: 99284; 96374; 96375; 82550; 84484; 80053; 83690; 85025; 81001; 36415; 93005; J7120; J2405; J2470